=== PATIENT | female | born 1985 | race Two or more races ===

== ENCOUNTER 2018-07-07 02:07 | Inpatient (IN) | payer OTHER ==
[~2018-07-07] VITALS: Ht 154.9 cm; Wt 69.0 kg
[~2018-07-07 02:07] MED LIST: IBUP-1222 PO; OXYC-302 PO; PREN1TAB60 PO
[2018-07-07] MEDS: LACTATED RINGERS 1,000 ML IV SCH ×3 (02:15→13:04)
[2018-07-07] MEDS ORDERED: LACTATED RINGERS 1,000 ML IV SCH (02:41)
[2018-07-07] MEDS ORDERED: D5%-LACTATED RINGERS 1,000 ML IV SCH ×2 (02:41→07:08)
[2018-07-07] MEDS ORDERED: OXYTOCIN 30U/ 0.9% NaCL 500ML 500 ML IV ONE ×2 (02:41→07:08)
[2018-07-07] MEDS ORDERED: NEWBORN KIT ONE (02:52)
[2018-07-07] MEDS ORDERED: SODIUM CITRATE/CITRIC ACID 30 ML UDC PO PRN (03:00)
[2018-07-07] MEDS ORDERED: FENTANYL PF 100 MCG/2ML IVPush PRN ×2 (03:00→07:30)
[2018-07-07] MEDS ORDERED: CALCIUM CARBONATE 500 MG TAB.CHEW PO PRN ×3 (03:00→15:00)
[2018-07-07] MEDS ORDERED: ONDANSETRON 2MG/ML, 2ML IVPush PRN ×2 (03:00→07:30)
[2018-07-07] MEDS ORDERED: FENTANYL PF 100 MCG/2ML IV PRN ×2 (03:00→07:30)
[2018-07-07] MEDS ORDERED: TERBUTALINE 1 MG/ML, 1ML IVPush PRN (03:00)
[2018-07-07] MEDS ORDERED: METOCLOPRAMIDE 5 MG/ML, 2ML IVPush PRN ×2 (03:00→07:30)
[2018-07-07 03:12] LABS: BASOPHILS # (AUTO) 0.05 x10^3/uL (0-0.1); BASOPHILS % (AUTO) 1 % (0-1); EOSINOPHILS % (AUTO) 1 % (1-7); LYMPHOCYTES # (AUTO) 2.53 x10^3/uL (1-3.4); LYMPHOCYTES % (AUTO) 27 % (22-44); MD NO; MEAN CORPUSCULAR HEMOGLOBIN 31.2 pg (27.0-34.8); MEAN CORPUSCULAR HGB CONC 34.1 g/dL (32.4-35.8); MEAN CORPUSCULAR VOLUME 91.5 fL (80-100); MEAN PLATELET VOLUME 8.7 fL (7.4-10.4); MONOCYTES # (AUTO) 0.55 x10^3/uL (0.2-0.8); MONOCYTES % (AUTO) 6 % (2-9); NEUTROPHILS # (AUTO) 6.15 x10^3/uL (1.8-6.8); NEUTROPHILS % (AUTO) 66 % (42-75); PLATELET COUNT 185 x10^3/uL (130-400); RED BLOOD COUNT 4.26 x10^6/uL (3.82-5.3); RED CELL DISTRIBUTION WIDTH 14.4 % (9.6-15.2)
[2018-07-07] MEDS ORDERED: OXYTOCIN 30U/ 0.9% NaCL 500ML 500 ML ONE (04:29)
[2018-07-07] MEDS ORDERED: OXYTOCIN 30U/ 0.9% NaCL 500ML 500 ML IV PRN (07:08)
[2018-07-07] MEDS ORDERED: FENTANYL/BUPIV./NS/PF 250 ML EPIDCONT SCH (08:21)
[2018-07-07] MEDS ORDERED: FENTANYL PF 500 MCG, BUPIVACAINE/PF 0.5%, 30ML 62.5 ML in SODIUM CHLORIDE 0.9% 177.5 ML EPIDCONT SCH (09:00)
[2018-07-07] MEDS ORDERED: BUPIVACAINE 0.25% ONE (09:05)
[2018-07-07] MEDS ORDERED: LIDOCAINE/PF 1.5%-EPI 1:200K, 30ML ONE (09:10)
[2018-07-07] MEDS ORDERED: TERBUTALINE 1 MG/ML, 1ML ONE (09:53)
[2018-07-07] MEDS: OXYTOCIN 30U/ 0.9% NaCL 500ML 500 ML IV SCH (14:32)
[2018-07-07] MEDS ORDERED: OXYcodone IR 5MG TABLET PO PRN (15:00)
[2018-07-07] MEDS ORDERED: DIPH,PERTUSS(ACELL),TET VAC/PF NC IM-VACC PRN (15:00)
[2018-07-07] MEDS ORDERED: RHOGAM FROM BLOOD BANK 1 NOTE EA IM/IV ONE (15:00)
[2018-07-07] MEDS ORDERED: ONDANSETRON 2MG/ML, 2ML IV PRN (15:00)
[2018-07-07] MEDS ORDERED: OXYcodone/APAP 5/325MG TABLET PO PRN (15:00)
[2018-07-07] MEDS ORDERED: METHYLERGONOVINE 0.2 MG/ML IM PRN (15:00)
[2018-07-07] MEDS ORDERED: MAGNESIUM HYDROXIDE 8%, 30ML UDC PO PRN (15:00)
[2018-07-07] MEDS ORDERED: MEASLES,MUMPS&RUBELLA VACC/PF 0.5 ML SQ PRN (15:00)
[2018-07-07] MEDS ORDERED: IBUPROFEN 600 MG TABLET ONE (15:53)
[2018-07-07] MEDS: IBUPROFEN 600 MG TABLET PO PRN (15:59)
[2018-07-07 18:00] VITALS: BP 130/64
[2018-07-07 19:30] VITALS: BP 112/71
[2018-07-07] MEDS: DOCUSATE 100 MG CAPSULE PO PRN (19:53)
[2018-07-08] MEDS: OXYTOCIN 30U/ 0.9% NaCL 500ML 500 ML IV SCH (00:32)
[2018-07-08 00:40] VITALS: BP 110/70
[2018-07-08] MEDS: IBUPROFEN 600 MG TABLET PO PRN ×2 (00:48→08:35)
[2018-07-08 04:05] VITALS: BP 107/77
[2018-07-08 05:28] LABS: BASOPHILS # (AUTO) 0.03 x10^3/uL (0-0.1); BASOPHILS % (AUTO) 0 % (0-1); EOSINOPHILS # (AUTO) 0.08 x10^3/uL (0-0.4); EOSINOPHILS % (AUTO) 1 % (1-7); LYMPHOCYTES # (AUTO) 2.41 x10^3/uL (1-3.4); LYMPHOCYTES % (AUTO) 22 % (22-44); MD NO; MEAN CORPUSCULAR HEMOGLOBIN 31.5 pg (27.0-34.8); MEAN CORPUSCULAR HGB CONC 33.8 g/dL (32.4-35.8); MEAN CORPUSCULAR VOLUME 93.2 fL (80-100); MEAN PLATELET VOLUME 8.7 fL (7.4-10.4); MONOCYTES # (AUTO) 0.56 x10^3/uL (0.2-0.8); MONOCYTES % (AUTO) 5 % (2-9); NEUTROPHILS % (AUTO) 72 % (42-75); PLATELET COUNT 153 x10^3/uL (130-400); RED BLOOD COUNT 3.64 x10^6/uL (3.82-5.3); RED CELL DISTRIBUTION WIDTH 14.5 % (9.6-15.2)
[2018-07-08 08:00] VITALS: BP 107/74
[2018-07-08] MEDS: DOCUSATE 100 MG CAPSULE PO PRN (08:35)
[2018-07-08] MEDS ORDERED: PRENATAL VIT/IRON/FA 1 EACH TABLET PO SCH (09:00)
[2018-07-08] MEDS ORDERED: IBUP-1222 PO (12:07)
== END 2018-07-08 15:10 | disposition home or self-care (01) | DRG 807 ==
LOC: LDOP 02:07 → LDIP 02:43 → 2NW 17:48
PROVIDERS: ADMIT Obstetrics & Gynecology Gynecology; ATTEND Obstetrics & Gynecology Gynecology
PROC: 10E0XZZ Delivery of Products of Conception, External Approach (ICD-10-PCS; principal; 2018-07-07)
PROC: 0KQM0ZZ Repair Perineum Muscle, Open Approach (ICD-10-PCS; 2018-07-07)
PROC: 3E0R3BZ Introduction of Anesthetic Agent into Spinal Canal, Percutaneous Approach (ICD-10-PCS; 2018-07-07)
PROC: 00HU33Z Insertion of Infusion Device into Spinal Canal, Percutaneous Approach (ICD-10-PCS; 2018-07-07)
PROC: 3E033VJ Introduction of Other Hormone into Peripheral Vein, Percutaneous Approach (ICD-10-PCS; 2018-07-07)
DX: O69.81X0 Labor and delivery complicated by cord around neck, without compression, not applicable or unspecified (principal); Z37.0 Single live birth; Z3A.39 39 weeks gestation of pregnancy; O42.92 Full-term premature rupture of membranes, unspecified as to length of time between rupture and onset of labor; O70.1 Second degree perineal laceration during delivery; O76 Abnormality in fetal heart rate and rhythm complicating labor and delivery
CPT/HCPCS: 36415; J7121; 82803; 85025; 86850; 86900; 89060; G0378; J3010; J3490; J2590; J7050; J7120; Q0114